=== PATIENT | female | born 1940 | race Two or more races ===

== ENCOUNTER → 2019-05-19 | Outpatient (CLI) | payer MEDICARE, OTHER ==
--- NOTE | 2019-05-19 15:04 | Diagnostic Imaging Report ---
Right knee, 3 views. History: Right knee pain. Findings: The soft tissues are normal. Bone mineralization is normal. There is no evidence of fracture or dislocation. There are no lytic or sclerotic lesions. There is severe medial and moderate lateral and patellofemoral joint space area with osteophytosis.. IMPRESSION: Tricompartmental DJD of the right knee, most severely affecting the medial compartment. Signed by: Michael Leahy on 05/19/2019 3:00 PM
== END ==
LOC: CARD 13:30
PROVIDERS: ATTEND Internal Medicine
DX: M25.561 Pain in right knee (principal); I73.9 Peripheral vascular disease, unspecified
CPT/HCPCS: 93925

== ENCOUNTER → 2020-07-19 | Outpatient (CLI) | payer MEDICARE, OTHER | END | disposition home or self-care (01) | LOC: US 11:47 | PROVIDERS: ATTEND Internal Medicine | DX: N18.9 Chronic kidney disease, unspecified (principal) | CPT/HCPCS: 76770 ==